=== PATIENT | male | born 1945 | race Caucasian/White ===

== ENCOUNTER → 2022-02-18 20:03 | Outpatient (CLI) | payer MEDICARE, OTHER, SELFPAY ==
--- NOTE | 2022-02-18 16:39 | DI.RAD_ITS ---
Exam(s) XR CHEST 2V PA LATERAL EXAM: XR CHEST 2V PA LATERAL CLINICAL HISTORY: r/o pna, CHRONIC COUGH - R05.3. TECHNIQUE: 2D digital imaging was performed. COMPARISON: No exams were available for comparison FINDINGS: 2 views: Heart size is normal. The mediastinum is not widened. On the latter view there increased markings projected over the heart shadow, less evident on the fron kamran view but suspect this is some mild infiltrate in the right middle lobe. There are no pleural eff usions. IMPRESSION: Possible mild infiltrate the right middle lobe. No pleural effusions. Comparison 20 prior two view chest radiograph would be helpful. DATA REPOSITORY: RADIATION DOSE DELIVERED:
== END ==
PROVIDERS: Visit Provider Nurse Practitioner Family
DX: R05.3 Chronic cough (principal); R91.8 Other nonspecific abnormal finding of lung field
CPT/HCPCS: 71046

== ENCOUNTER → 2023-05-24 01:33 | Outpatient (CLI) | payer MEDICARE, SELFPAY ==
--- NOTE | 2023-05-24 | DI.CTLCSR_ITS ---
Exam(s) CT CHEST LUNG CANCER SCREEN EXAM: CT CHEST LUNG CANCER SCREEN CLINICAL HISTORY: SCREENING FOR LUNG CA,F17.210. TECHNIQUE: Imaging Protocol: Low Dose Technique CONTRAST MATERIAL: None COMPARISON: CR XR CHEST 2V PA LATERAL from 02/18/2022 FINDINGS: CHEST: LUNGS: There are no ominous pulmonary nodules. There is a benign calcified granuloma in the sub apica l right upper lobe measuring 6 x 5 mm. In the superior segment of the right upper lobe there is some mild bone reaction adjacent to a bony excrescence which comes off of the posterior aspect of the rig ht 6 stent 7th rib, this having benign chronic appearance with pseudoarticulation. MEDIASTINUM: There is no obvious hilar nor mediastinal adenopathy. CARDIAC: Heart size is normal. There is no pericardial effusion.Caliber of the thoracic aorta is wit hin normal limits. OTHER: No significant adrenal masses. OSSEOUS: No significant osseous lesions.No acute fractures. IMPRESSION: 1. No concerning lung nodules. 2. Incidental benign osseous right rib findings as described above. 3. Lung RADS Cat 1 - Negative: No nodules and definitely benign nodules Lung-RADS 1.0 CATEGORIES: Category 0 - Prior chest CT exam(s) being located for comparison. Category 1 - Annual screening in 12 months. No nodules or definitely benign nodules. Category 2 - Annual screening in 12 months. Benign appearance. Nodules with low likelihood of becomin g active cancer. Category 3 - 6-month follow-up. Probably benign. Short-term follow-up suggested. Nodules with low lik elihood of becoming active cancer. Category 4A - 3-month follow-up and CT/PET if >8 mm in size. Suspicious finding. Findings which requi re additional testing. Category 4B - Findings which require additional testing and tissue sampling. Category 4X - Category 3 or 4 nodules with additional features or imaging findings that increases the suspicion of malignancy. Modifier S- Potentially clinically significant findings (non lung cancer) RADIATION DOSE DELIVERED: 86.19mGy.cm Total DLP DATA REPOSITORY: All CT scans at this facility are submitted to the National Radiology Data Registry (NRDR) Dose Index Registry (DIR) with the [employer] ([employer]). RADIATION OPTIMIZATION: All CT scans at this facility use at least one of these dose optimization te chniques: automated exposure control; mA and/or kV adjustment per patient size (includes targeted exa ms where dose is matched to clinical indication); or iterative reconstruction.
--- NOTE | 2023-05-24 | DI.US_ITS ---
Exam(s) US AAA SCREENING EXAM: US AAA SCREENING CLINICAL HISTORY: SCREENING FOR AAA COMPARISON: No exams were available for comparison FINDINGS: Abdominal aorta: No evidence of aneurysm. Maximum diameter is 2.9 cm (proximally). Distally the aor ta measures 2 cm.. Visualized common iliac arteries: Both common iliac arteries are dilated. Right measures 2 cm diamet er and left measures 2.4 cm diameter. IMPRESSION: No evidence of abdominal aortic aneurysm. 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 Right side measures 2 cm and left side measures 2.4 cm DATA REPOSITORY:
== END ==
PROVIDERS: Visit Provider Nurse Practitioner Family
DX: F17.210 Nicotine dependence, cigarettes, uncomplicated (principal); Z12.2 Encounter for screening for malignant neoplasm of respiratory organs; Z13.6 Encounter for screening for cardiovascular disorders
CPT/HCPCS: 71271; 76706

== ENCOUNTER → 2023-06-29 01:05 | Outpatient (CLI) | payer MEDICARE, OTHER, SELFPAY ==
[2023-06-29] MEDS: Simethicone/Sod Bicarb/Cit Ac, 4 gram PACKET 1 PACKET PO (09:30)
[2023-06-29] MEDS: Barium Sulfate 98% W/W 140 ML BTL PO (09:31)
[2023-06-29] MEDS: Barium Sulfate 60% W/V 355 ML BTL 100 ML PO (09:31)
--- NOTE | 2023-06-29 09:32 | DI.RAD_ITS ---
Exam(s) RF BARIUM SWALLOW EXAM: RF BARIUM SWALLOW CLINICAL HISTORY: DIFFICULTY SWALLOWING AND REGURGITATING FOOD, R13.10 TECHNIQUE: 2D and realtime digital imaging was performed. CONTRAST MATERIAL: Thick and thin barium and barium tablet were administered. COMPARISON: CT CT CHEST LUNG CANCER SCREEN from 05/24/2023 FINDINGS: The PA and lateral chest films show normal heart size and clear lung el. The lateral post tensioning ironworker helper view of the neck is shows degenerative changes throughout the facet joints. Severe degenerative disc lucas ges are seen at C5-6 and C6-7. There prominent endplate osteophytes projecting anteriorly. Esophagus: The patient swallowed barium without difficulty. Noevidence for mucosal erosions. Nofold thickening. No mass is visible. Significant narrowing over an approximately 2 centimeter length is n oted at the distal esophagus. Motility: There is a normal primary stripping wave. Significant tertiary contractions were noted in t he lower esophagus.. There is no hiatal hernia. Nogastroesophageal reflux was observed during the exam. IMPRESSION: distal esophageal stricture without evidence of mucosal erosion or mass. RADIATION DOSE DELIVERED: armaan Rodas=16.7 mGy
== END ==
PROVIDERS: Visit Provider Nurse Practitioner Family
DX: R13.10 Dysphagia, unspecified (principal)
CPT/HCPCS: 74221; J3490

== ENCOUNTER 2025-05-31 03:32 | Outpatient (CLI) | payer MEDICARE, SELFPAY ==
[2025-05-31 13:17] LABS: Abs Immature Grans 0.01 10^3/uL (0.0-0.06); HCT 44.1 % (40.0-50.0); HGB 15.1 g/dL (13.5-17.5); Immature Grans % 0.1 %; MCH 32.5 pg (27.0-33.0); MCHC 34.2 % (32.0-36.0); MCV 95 fL (80-95); MPV 9.8 fL (8.0-11.0); Platelet Count 240 10^3/uL (130-400); RBC 4.64 10^6/uL (4.36-5.78); RDW 13.2 % (11.8-14.1); RDW-SD 46.7 fL; WBC 6.73 10^3/uL (4.4-10.8)
[2025-05-31 14:56] LABS: ALT 25 U/L (16-63); AST 17 U/L (15-37); Albumin 3.9 g/dL (3.4-5.0); Alkaline Phosphatase 72 U/L (46-116); Anion Gap 7.9 mmol/L (3-11); BUN 13 mg/dL (7-18); Bilirubin, Total 0.5 mg/dL (0.2-1.0); CO2 29.1 mmol/L (21.0-32.0); Calcium 10.0 mg/dL (8.5-10.1); Chloride 101 mmol/L (98-107); Estimated GFR 76.56 (mL/min/1.73m2); Glucose 82 mg/dL (74-106); Potassium 4.7 mmol/L (3.5-5.1); Sodium 138 mmol/L (136-145); Total Protein 7.3 g/dL (6.4-8.2)
[2025-05-31 15:45] LABS: Calculated LDL 114 mg/dL (<100); Cholesterol 199 mg/dL (<200); HDL Cholesterol 61 mg/dL (>or=40); Triglyceride 120 mg/dL (<150)
== END 2025-05-31 03:33 | disposition home or self-care (01) ==
PROVIDERS: Visit Provider Nurse Practitioner Family
DX: E78.5 Hyperlipidemia, unspecified (principal)
CPT/HCPCS: 36415; 80053; 80061; 85025

== ENCOUNTER 2025-07-09 00:17 | Outpatient (CLI) | payer MEDICARE, SELFPAY ==
--- NOTE | 2025-07-09 | DI.US_ITS ---
Exam(s) US CAROTID EXAM: US CAROTID CLINICAL HISTORY: SYNCOPE AND COLLAPSE, R55. TECHNIQUE: Ultrasound carotids performed using grayscale, color-flow, and spectral Doppler imaging. COMPARISON: No exams were available for comparison FINDINGS: RIGHT CAROTID ARTERY: Plaque: Mild amount of calcific plaque at the right common carotid bulb and proximal internal carotid artery. The distal internal carotid artery is quite tortuous. Velocity elevation: None. LEFT CAROTID ARTERY: Plaque: Minimal along the common carotid. Small focus of calcific plaque at the common carotid bulb. Mild amount of plaque at the proximal internal carotid artery. Velocity elevation: None. VERTEBRAL ARTERIES: Antegrade flow. IMPRESSION: Mild amount of calcific plaque bilaterally in the common carotid bulbs and proximal internal carotid arteries. No evidence for hemodynamically significant carotid stenosis. Criteria for Carotid Stenosis: Normal: ICA PSV <125 cm/s no plaque or intimal thickening is visible. <50% stenosis: ICA PSV <125 cm/s and plaque or intimal thickening is visible. 50-69% stenosis: ICA PSV is 125-250 cm/s and plaque is visible. >70% stenosis to near occlusion: ICA PSV >250 cm/s with visible plaque and luminal narrowing. DATA REPOSITORY:
--- NOTE | 2025-07-09 15:01 | DI.CT_ITS ---
Exam(s) CT HEAD WO EXAM: CT HEAD WO CLINICAL HISTORY: SYNCOPE AND COLLAPSE, R55. TECHNIQUE: Imaging Protocol: Axial computed tomography images with coronal and sagittal reformatted images were created and reviewed COMPARISON: No exams were available for comparison FINDINGS: Ventricles and Extra axial spaces: Normal in size and morphology for the patient's age. Hemorrhage: None. Cerebral parenchyma: No evidence of acute infarct or mass. There are patchy areas of decreased attenuation in the white matter consistent with sequela of chronic microvascular ischemia. Midline shift: None. Brainstem/Cerebellum: Normal. Bones: No skull or facial fractures. Visualized Paranasal sinuses:Clear. Mastoids: Clear. Soft Tissues: Unremarkable. ORBITS: Unremarkable. PITUITARY: Not enlarged. IMPRESSION: No acute intracranial process. RADIATION DOSE DELIVERED: Total DLP DATA REPOSITORY: All CT scans at this facility are submitted to the National Radiology Data Registry (NRDR) Dose Index Registry (DIR) with the [employer] ([employer]). RADIATION OPTIMIZATION: All CT scans at this facility use at least one of these dose optimization techniques: automated exposure control; mA and/or kV adjustment per patient size (includes targeted exams where dose is matched to clinical indication); or iterative reconstruction.
== END 2025-07-09 00:37 ==
LOC: DI 00:17
PROVIDERS: Visit Provider Nurse Practitioner Family
DX: R55 Syncope and collapse (principal)
CPT/HCPCS: 70450; 93880